=== PATIENT | female | born 1955 | race African-American/Black ===

== ENCOUNTER 2016-07-29 08:34 | Outpatient (CLI) | payer MEDICARE, MEDICAID ==
[~2016-07-29] VITALS: Ht 157.5 cm; Wt 50.4 kg
[2016-07-29] VITALS (9 sets, daily range): BP systolic 137–161; BP diastolic 91–122; PULSE 55–77; TEMP 98.1
[~2016-07-29 08:34] MED LIST: ATRIPLA 600 MG-1 TAB PO; DESYREL DIVIDO150 M1 PO; KLOR-CON M2020 MEQ PO; LIPITOR20 MG PO; PREMARIN VAG42.5 GM VG; PRENATAL FORMU1 EAC3 PO; PREVACID 30MG30 M1 PO; PROTONIX 40MG T40 MG PO; RT SPIRIVA18 MCG IH; SYNTHROID0.175 MG PO; TOPROL XL 50MG50 MG PO; XARELTO20 MG PO; ZOFRAN 4MG T4 MG/TAB PO; ZOLOFT 100MG100 MG PO
[2016-07-29] MEDS ORDERED: PRIL40 PO (10:27)
[2016-07-29] MEDS ORDERED: PROAIR HFA0.09 MG/AC IH (10:28)
[2016-07-29] MEDS ORDERED: MARINOL10 MG PO (10:29)
== END 2016-07-29 14:23 | disposition home or self-care (01) ==
LOC: COL.CAR 08:34
DX: S32.029A Unspecified fracture of second lumbar vertebra, initial encounter for closed fracture (principal); S32.038A Other fracture of third lumbar vertebra, initial encounter for closed fracture; B20 Human immunodeficiency virus [HIV] disease; W19.XXXA Unspecified fall, initial encounter; Z91.81 History of falling
CPT/HCPCS: C1713; J2250; J3010; J7120